=== PATIENT | male | born 1990 | race Caucasian/White ===

== ENCOUNTER 2016-11-09 18:49 | Emergency (ER) | payer BC ==
[2016-11-09 18:59] VITALS: BP 134/70
--- NOTE | 2016-11-09 19:29 | UC ---
Cardiac HPI - HPI Summary HPI Summary: has had chest pain over the left breast since noon. has been having palpitations for the last month or so and had his thyroid checked. he has not heard back from the Doctor about his thyroid tests. He also feels some shortness of breath. He has had a cold for the last month. The pain is on and off. It feels tight when he takes a deep breath. Chest discomfort with inhalation. Denies wheezing. Denies fevers. Palpitations started a few weeks ago . Had a murmur as a child. Denies drug use or cocaine use. Denies n/v but has had diarrhea for months. Not aware of cardiac concerns with family. [ End ] - History of Current Complaint Chief Complaint: UCChestPain Stated Complaint: CHEST PAIN,DIFFICULTY BREATHING Time Seen by Provider: 11/09/16 19:20 Hx Obtained From: Patient Onset/Duration: Sudden Onset, Gradual Onset Initial Severity: Mild Current Severity: Moderate Chest Pain Location: Left Lateral Character: Fast, Irregular, Pounding Aggravating: Exertion, Deep Breaths Alleviating: Rest Associated Signs & Symptoms: Positive: Chest Pain Related History: Similar Episode/Dx as - earlier this month -- work up with [facility] in [facility] - Risk Factors Cardiac Risk Factors: Negative Atrial Fibrillation: Negative - Allergy/Home Medications Allergies/Adverse Reactions: Allergies Allergy/AdvReac Type Severity Reaction Status Date / Time Cefaclor [From [facility]] Allergy Difficulty Verified 11/09/16 18:59 Breathing PMH/Surg Hx/FS Hx/Imm Hx Previously Healthy: Yes Cardiovascular History Of: Reports: Cardiac Disorders - HX OF HEART MURMUR Respiratory History Of: Denies: COPD GI/ History Of: Denies: Gastroesophageal Reflux Psychological History Of: Denies: Anxiety Cancer History Of: Denies: Lung Cancer Other History Of: Negative For: HIV - Surgical History Surgical History: None - Family History Known Family History: Positive: None - Social History Occupation: Employed Full-time - Attending Radiologist Alcohol Use: Occasionally Substance Use Type: None Smoking Status (MU): Never Smoked Tobacco Have You Smoked in the Last Year: No - Immunization History Most Recent Tetanus Shot: WITHIN LAST 5 YRS Review of Systems Constitutional: Negative Skin: Negative Eyes: Negative ENT: Negative Respiratory: Negative Cardiovascular: Palpitations, Chest Pain Gastrointestinal: Negative Genitourinary: Negative Motor: Negative Neurovascular: Negative Musculoskeletal: Negative Neurological: Negative Psychological: Negative All Other Systems Reviewed And Are Negative: Yes Physical Exam Triage Information Reviewed: Yes Appearance: Well-Appearing, No Pain Distress, Well-Nourished Vital Signs: Initial Vital Signs Pulse 112 11/09/16 18:54 Resp 20 11/09/16 18:54 BP 134/70 11/09/16 18:54 Pulse Ox 100 11/09/16 18:54 Vital Signs Reviewed: Yes Eye Exam: Normal ENT Exam: Normal Dental Exam: Normal Neck exam: Normal Neck: Positive: 1 Respiratory Exam: Normal Cardiovascular Exam: Normal Abdominal Exam: Normal Musculoskeletal Exam: Normal Neurological Exam: Normal Psychological Exam: Normal Psychological: Positive: Other: - mildly anxious Skin Exam: Normal - Assessment/Plan Course Of Treatment: Intermittent palpitations and chest pain that will last a couple seconds and go away. Has had some increase in caffeine which may play a role. Advised to f/u with PCP to discuss cardiac work up like echo / holter. Discussed meds but he declined. He is aware if Sx worsen to go to ED. No acute concerns and vitals stable. No cardiac disease in his family he is aware of. No PE findings. No murmur. RRR . He is agreeable to plan at this time. - Clinical Impression Provider Diagnoses: Palpitations Discharge - Discharge Plan Condition: Good Disposition: HOME Patient Education Materials: Palpitations (ED) Referrals: SHANNAN Restrepo [Primary Care Provider] - 3 Days Lesly Galeas MD [Medical Doctor] - 3 Days (Cardiology referral ) Additional Instructions: As we discussed please follow up with your PCP for a cardiac work up for your palpitations / chest pains. Today your EKG an chest xray show no acute concerns. If your symptoms return / worsen please go to the Emergency Room.
--- NOTE | 2016-11-09 19:58 | RAD ---
INDICATION: Chest pain and palpitations. COMPARISON: There are no prior studies available for comparison. TECHNIQUE: Dual-energy PA and lateral views of the chest were obtained. FINDINGS: The heart is within normal limits in size. Mediastinal and hilar contours appear within normal limits. The lungs are hyperinflated and clear. No pleural effusion is seen. IMPRESSION: NO EVIDENCE FOR ACTIVE CARDIOPULMONARY DISEASE.
== END 2016-11-09 20:16 | disposition home or self-care (01) ==
LOC: UCCORT 18:49
DX: R00.2 Palpitations (principal); R07.9 Chest pain, unspecified; Z88.1 Allergy status to other antibiotic agents
CPT/HCPCS: 71020; 93005; 99211; G0463

== ENCOUNTER 2017-03-18 12:31 | Emergency (ER) | payer BC ==
[2017-03-18 12:43] VITALS: BP 130/84
--- NOTE | 2017-03-18 13:06 | UC ---
General HPI - HPI Summary HPI Summary: Patient is complaining of pain above the right eye. denies any changins in vision or pain in the eye ball itself. denies fever , does have itchy watery eyes and some nasal congetsion. - History of Current Complaint Chief Complaint: UCHeadache Stated Complaint: SINUS ENRIQUEZ/PRESSURE Time Seen by Provider: 03/18/17 12:50 Hx Obtained From: Patient Onset/Duration: Sudden Onset, Lasting Days Onset Severity: Moderate Current Severity: Moderate Associated Signs & Symptoms: Positive: Headache - Allergy/Home Medications Allergies/Adverse Reactions: Allergies Allergy/AdvReac Type Severity Reaction Status Date / Time Cefaclor [From [facility]] Allergy Difficulty Verified 03/18/17 12:43 Breathing Home Medications: Home Medications Methimazole TAB* [Tapazole TAB*] 10 mg PO TID 03/18/17 [History Confirmed ] Propranolol TAB* [Inderal TAB*] 80 mg PO BID 03/18/17 [History Confirmed ] PMH/Surg Hx/FS Hx/Imm Hx Previously Healthy: Yes Other History Of: Negative For: HIV - Surgical History Surgical History: None - Family History Known Family History: Positive: None, Respiratory Disease - Social History Alcohol Use: Occasionally Substance Use Type: None Smoking Status (MU): Never Smoked Tobacco Have You Smoked in the Last Year: No - Immunization History Most Recent Tetanus Shot: WITHIN LAST 5 YRS Review of Systems Constitutional: Negative Skin: Negative Eyes: Eye Redness ENT: Nasal Discharge Respiratory: Negative Cardiovascular: Negative Gastrointestinal: Negative Genitourinary: Negative Motor: Negative Neurovascular: Negative Musculoskeletal: Negative Neurological: Negative Psychological: Negative All Other Systems Reviewed And Are Negative: Yes Physical Exam Triage Information Reviewed: Yes Appearance: Well-Appearing, Well-Nourished, Pain Distress Vital Signs: Initial Vital Signs Temp 98.2 F 03/18/17 12:40 Pulse 68 03/18/17 12:40 Resp 16 03/18/17 12:40 BP 130/84 03/18/17 12:40 Pulse Ox 100 03/18/17 12:40 Vital Signs Reviewed: Yes Eye Exam: Normal Eyes: Positive: Conjunctiva Clear, Other: - sclera is red bilaterally, no drainage, Fundoscopic exam red reflex is normal ENT Exam: Normal ENT: Positive: Hearing grossly normal, Pharynx normal, Nasal congestion, TMs normal Dental Exam: Normal Neck exam: Normal Neck: Positive: Supple, Nontender, No Lymphadenopathy Respiratory Exam: Normal Respiratory: Positive: Chest non-tender, Lungs clear, Normal breath sounds Cardiovascular Exam: Normal Cardiovascular: Positive: RRR, No Murmur, Pulses Normal Abdominal Exam: Normal Abdomen Description: Positive: Nontender, No Organomegaly, Soft Bowel Sounds: Positive: Present Musculoskeletal Exam: Normal Musculoskeletal: Positive: Strength Intact, ROM Intact, No Edema Neurological Exam: Normal Neurological: Positive: Alert, Muscle Tone Normal Psychological Exam: Normal Skin Exam: Normal Course/Dx - Course Course Of Treatment: hx obtained, exam performed, meds reviewed, treated for sinus infection. - Differential Dx - Multi-Symptom Differential Diagnoses: Other - gluacoma sinus intfection ENRIQUEZ Provider Diagnoses: sinusitis Discharge - Discharge Plan Condition: Stable Disposition: HOME Prescriptions: DOXYcycline CAP(*) [DOXYcycline 100MG CAP(*)] 100 mg PO BID #14 cap Patient Education Materials: Sinusitis (ED) Referrals: Machelle PERAZA,Katlyn Schulte [Primary Care Provider] - Additional Instructions: 1. take the medication as prescribed. 2. Warm compresses to the right eye. 3. If pain is persistant in the right eye, increase in pressure or change in vision follow up.
== END 2017-03-18 13:08 | disposition home or self-care (01) ==
LOC: UCCORT 12:31
DX: J32.9 Chronic sinusitis, unspecified (principal); Z88.1 Allergy status to other antibiotic agents
CPT/HCPCS: 99212; G0463

== ENCOUNTER 2017-08-07 07:47 | Emergency (ER) | payer BC ==
[2017-08-07 08:05] VITALS: BP 119/76
--- NOTE | 2017-08-07 08:29 | UC ---
Abdominal Pain Male HPI - HPI Summary HPI Summary: ABDOMINAL PAIN X 1 MONTH WORSE LAST NIGHT , FELT BLOATED , NO FEVER, NO CHILLS, NO N/V, + LOOSE STOOL NO DYSURIA - History of Current Complaint Chief Complaint: UCGI Stated Complaint: STOMACH COMPLAINT RIGHT LOWER BACK PAIN Time Seen by Provider: 08/07/17 08:00 Hx Obtained From: Patient Onset/Duration: Gradual Onset, Lasting Weeks - 4, Still Present Timing: Constant Severity Initially: Moderate Severity Currently: Moderate Location: Diffuse Radiates: No Character: Aching, Cramping Aggravating Factor(s): Food Alleviating Factor(s): Nothing Associated Signs And Symptoms: Positive: Diarrhea. Negative: Diaphoresis, Fever , Cough, Chest Pain, Dizzy, Back Pain, Constipation, Blood in Stool, Urinary Symptoms, Decreased Appetite, Nausea, Vomiting, Penile Discharge - Allergies/Home Medications Allergies/Adverse Reactions: Allergies Allergy/AdvReac Type Severity Reaction Status Date / Time Cefaclor [From [facility]] Allergy Difficulty Verified 08/07/17 08:05 Breathing Home Medications: Home Medications Calcium Carbonate (Antacid) [Tums] 2 tab.chew PO DAILY PRN 08/07/17 [History Confirmed 08/07/17] PMH/Surg Hx/FS Hx/Imm Hx Endocrine History: Thyroid Disease, Hyperthyroidism Other History Of: Negative For: HIV - Surgical History Surgical History: None - Family History Known Family History: Positive: None Negative: Diabetes - Social History Alcohol Use: Occasionally Substance Use Type: None Smoking Status (MU): Never Smoked Tobacco Have You Smoked in the Last Year: No - Immunization History Most Recent Tetanus Shot: WITHIN LAST 5 YRS Review of Systems Constitutional: Negative Skin: Negative Eyes: Negative ENT: Negative Respiratory: Negative Cardiovascular: Negative Gastrointestinal: Abdominal Pain, Diarrhea Is Patient Immunocompromised?: No All Other Systems Reviewed And Are Negative: Yes Physical Exam Triage Information Reviewed: Yes Appearance: Well-Appearing, No Pain Distress, Well-Nourished Vital Signs: Initial Vital Signs Temp 97.4 F 08/07/17 07:53 Pulse 59 08/07/17 07:53 Resp 14 08/07/17 07:53 BP 119/76 08/07/17 07:53 Pulse Ox 100 08/07/17 07:53 Vital Signs Reviewed: Yes Eye Exam: Normal Eyes: Positive: Conjunctiva Clear ENT: Positive: Normal ENT inspection, Hearing grossly normal, Pharynx normal Neck exam: Normal Neck: Positive: Supple, Nontender, No Lymphadenopathy Respiratory: Positive: Chest non-tender, Lungs clear, Normal breath sounds Cardiovascular: Positive: RRR, No Murmur, Pulses Normal Abdomen Description: Positive: Soft, Other: - DIFFUSE TENDERENSS. Negative: CVA Tenderness (R), CVA Tenderness (L), Distended, Guarding Bowel Sounds: Positive: Present Skin Exam: Normal Abd Pain Male Course/Dx - Differential Dx/Clinical Impression Provider Diagnoses: GASTRITIS Discharge - Discharge Plan Condition: Stable Disposition: HOME Prescriptions: Pantoprazole TAB (NF) [Protonix TAB (NF)] 40 mg PO DAILY #30 tab Patient Education Materials: Gastritis (ED) Referrals: Machelle PERAZA,Katlyn Schulte [Primary Care Provider] - 2 Weeks Additional Instructions: your symptoms / abdominal issues might be due to over active thyroid please follow up with your traffic incident management manager for eval. and tx
== END 2017-08-07 08:31 | disposition home or self-care (01) ==
LOC: UCCORT 07:47
DX: K29.70 Gastritis, unspecified, without bleeding (principal); E05.90 Thyrotoxicosis, unspecified without thyrotoxic crisis or storm; Z88.1 Allergy status to other antibiotic agents
CPT/HCPCS: 99212; G0463

== ENCOUNTER 2017-08-23 17:47 | Emergency (ER) | payer BC ==
--- NOTE | 2017-08-23 18:43 | UC ---
Back Pain HPI - HPI Summary HPI Summary: 27 year old male presents with complains of sore throat and neck swelling. - History of Current Complaint Stated Complaint: CHEST CONGESTION Time Seen by Provider: 08/23/17 18:42 Hx Obtained From: Patient Onset/Duration: Sudden Onset Timing: Lasting Seconds Severity Currently: Moderate Pain Scale Used: 0-10 Numeric - 5 - Allergies/Home Medications Allergies/Adverse Reactions: Allergies Allergy/AdvReac Type Severity Reaction Status Date / Time Cefaclor [From [facility]] Allergy Difficulty Verified 08/23/17 18:46 Breathing Home Medications: Home Medications Aspirin [Aspirin 81 MG TAB] 1 tab PO ONCE PRN 08/23/17 [History Confirmed ] PMH/Surg Hx/FS Hx/Imm Hx Previously Healthy: Yes Other History Of: Negative For: HIV - Surgical History Surgical History: None - Family History Known Family History: Positive: None Negative: Diabetes - Social History Alcohol Use: Occasionally Substance Use Type: None Smoking Status (MU): Never Smoked Tobacco Have You Smoked in the Last Year: No - Immunization History Most Recent Tetanus Shot: WITHIN LAST 5 YRS Review of Systems Constitutional: Negative Skin: Negative Eyes: Negative ENT: Nasal Discharge, Sinus Congestion, Sinus Pain/Tenderness Respiratory: Negative Cardiovascular: Negative Gastrointestinal: Negative Genitourinary: Negative Motor: Negative Neurovascular: Negative Musculoskeletal: Negative Neurological: Negative Psychological: Negative All Other Systems Reviewed And Are Negative: Yes Physical Exam Triage Information Reviewed: Yes Vital Signs Reviewed: Yes Eye Exam: Normal ENT Exam: Normal Dental Exam: Normal Neck exam: Normal Neck: Positive: Other: - right sided neck swelling Respiratory Exam: Normal Cardiovascular Exam: Normal Abdominal Exam: Normal Musculoskeletal Exam: Normal Neurological Exam: Normal Psychological Exam: Normal Skin Exam: Normal Back Pain Course/Dx - Differential Dx/Diagnosis Provider Diagnoses: strep throat Discharge - Discharge Plan Condition: Stable Disposition: HOME Prescriptions: Azithromyxin CLOVIS (NF) [Z-Clovis (Zithromax) 250 mg tabs #6] 2 tab PO .TODAY, THEN 1 DAILY #6 tab Magic M W2 Jason/Maal/Nyst/Lido* 5 ml SWISH SPIT QID PRN #120 ml PRN Reason: Pain Patient Education Materials: Strep Throat (ED) Referrals: Machelle PERAZA,Katlyn Schulte [Primary Care Provider] -
[2017-08-23 18:46] VITALS: BP 122/76
== END 2017-08-23 19:24 | disposition home or self-care (01) ==
LOC: UCCORT 17:47
DX: J02.0 Streptococcal pharyngitis (principal); Z88.1 Allergy status to other antibiotic agents; Z79.82 Long term (current) use of aspirin
CPT/HCPCS: 87651; 99212; G0463

== ENCOUNTER 2017-10-10 12:48 | Emergency (ER) | payer BC ==
[2017-10-10 14:09] VITALS: BP 111/62
--- NOTE | 2017-10-10 14:27 | UC ---
Abdominal Pain Male HPI - HPI Summary HPI Summary: 27 year old with Grave's and history of GERD presents with Mid chest burning and chest tightness for 4 days; hx of Graves. has taken some NSSAIDs lateley and the discomfort has been worse after a meal and also sometimes at night when he is at rest. Has had more stress this past year with the recent illnesses. No MAKI. No SOB. [ End ] - History of Current Complaint Chief Complaint: UCChestPain Stated Complaint: CHEST TIGHTNESS/FATIGUE Time Seen by Provider: 10/10/17 13:37 Hx Obtained From: Patient Onset/Duration: Gradual Onset Severity Initially: Moderate Severity Currently: Moderate Radiates: No Character: Burning, Dull Aggravating Factor(s): Food - Allergies/Home Medications Allergies/Adverse Reactions: Allergies Allergy/AdvReac Type Severity Reaction Status Date / Time Cefaclor [From [facility]] Allergy Difficulty Verified 10/10/17 13:31 Breathing PMH/Surg Hx/FS Hx/Imm Hx Previously Healthy: Yes Other Endocrine History: Graves Other History Of: Negative For: HIV - Surgical History Surgical History: Yes Surgery Procedure, Year, and Place: MRSA left arm - Family History Known Family History: Positive: None Negative: Diabetes - Social History Occupation: Employed Full-time Lives: With Family Alcohol Use: Occasionally Substance Use Type: None Smoking Status (MU): Never Smoked Tobacco Have You Smoked in the Last Year: No - Immunization History Most Recent Tetanus Shot: WITHIN LAST 5 YRS Review of Systems Constitutional: Fatigue Cardiovascular: Chest Pain Gastrointestinal: Abdominal Pain Is Patient Immunocompromised?: No All Other Systems Reviewed And Are Negative: Yes Physical Exam Triage Information Reviewed: Yes Appearance: Well-Appearing, No Pain Distress, Well-Nourished Vital Signs: Initial Vital Signs Temp 99.5 F 10/10/17 13:11 Pulse 52 10/10/17 13:11 Resp 16 10/10/17 13:11 BP 111/62 10/10/17 13:11 Pulse Ox 100 10/10/17 13:11 Vital Signs Reviewed: Yes Eye Exam: Normal ENT Exam: Normal Dental Exam: Normal Neck exam: Normal Neck: Positive: 1 Respiratory Exam: Normal Cardiovascular Exam: Normal Abdominal Exam: Normal Abdomen Description: Positive: Nontender, No Organomegaly, Soft. Negative: CVA Tenderness (R), CVA Tenderness (L) Musculoskeletal Exam: Normal Neurological Exam: Normal Psychological Exam: Normal Skin Exam: Normal Abd Pain Male Course/Dx - Course Course Of Treatment: Likely GERD / Anxiety due to recent illness. -- start H2 rand and if not better go to PCP for further eval . Advised avoid triggers as well. Go to ED if Sx persist . Ekg SHOWS no acute concerns. no risks for patient to be concerned of for cardiac for this. - Differential Dx/Clinical Impression Provider Diagnoses: Gerd Discharge - Discharge Plan Condition: Good Disposition: HOME Patient Education Materials: Gastroesophageal Reflux Disease (ED) Referrals: Machelle PERAZA,Katlyn Schulte [Primary Care Provider] - 4 Days Additional Instructions: Please consider use of Zantac 150 mg by mouth twice daily and if your symptoms worsen then go to the Emergency department
== END 2017-10-10 14:31 | disposition home or self-care (01) ==
LOC: UCCORT 12:48
DX: K21.9 Gastro-esophageal reflux disease without esophagitis (principal); Z88.1 Allergy status to other antibiotic agents
CPT/HCPCS: 93005; 99211; G0463

== ENCOUNTER 2018-12-11 16:59 | Emergency (ER) | payer BC ==
[2018-12-11 17:18] VITALS: BP 126/80
--- NOTE | 2018-12-11 18:40 | UC ---
Complaint Male HPI - HPI Summary HPI Summary: patient has had a day and a half of increase frequency of urination. some hesitancy with starting a stream. he denies any stomach pain, no pain with lifting. there is no swelling or pain in his testicles. patient is in a monogamous relationship. denies any chance of STD. no drainage from penis. - History of Current Complaint Chief Complaint: UCGU Stated Complaint: URINARY COMPLAINT Time Seen by Provider: 12/11/18 17:31 Hx Obtained From: Patient Onset/Duration: Sudden Onset, Lasting Days - 1 Timing: Intermittent Severity Initially: Mild Severity Currently: Mild Pain Intensity: 0 Aggravating Factor(s): Voiding - Allergies/Home Medications Allergies/Adverse Reactions: Allergies Allergy/AdvReac Type Severity Reaction Status Date / Time cefaclor [From [facility]] Allergy Difficulty Verified 12/11/18 17:18 Breathing Home Medications: Home Medications Levothyroxine TAB* [Synthroid TAB*] 50 mcg PO DAILY 12/11/18 [History Confirmed 12/11/18] PMH/Surg Hx/FS Hx/Imm Hx Previously Healthy: Yes Endocrine History: Thyroid Disease Other History Of: Negative For: HIV - Surgical History Surgical History: Yes Surgery Procedure, Year, and Place: MRSA left arm - Family History Known Family History: Positive: None Negative: Diabetes - Social History Alcohol Use: Occasionally Substance Use Type: None Smoking Status (MU): Never Smoked Tobacco Have You Smoked in the Last Year: No - Immunization History Most Recent Tetanus Shot: WITHIN LAST 5 YRS Review of Systems All Other Systems Reviewed And Are Negative: Yes Constitutional: Positive: Negative Skin: Positive: Negative Eyes: Positive: Negative ENT: Positive: Negative Respiratory: Positive: Negative Cardiovascular: Positive: Negative Gastrointestinal: Positive: Negative Genitourinary: Positive: Frequency, Other - hestiant stream Motor: Positive: Negative Neurovascular: Positive: Negative Musculoskeletal: Positive: Negative Neurological: Positive: Negative Psychological: Positive: Negative Is Patient Immunocompromised?: No Physical Exam Triage Information Reviewed: Yes Appearance: Well-Appearing, No Pain Distress, Well-Nourished Vital Signs: Initial Vital Signs Temp 98.3 F 12/11/18 17:14 Pulse 75 12/11/18 17:14 Resp 16 12/11/18 17:14 BP 126/80 12/11/18 17:14 Pulse Ox 100 12/11/18 17:14 Vital Signs Reviewed: Yes Eye Exam: Normal ENT Exam: Normal Dental Exam: Normal Neck exam: Normal Respiratory Exam: Normal Respiratory: Positive: Chest non-tender, Lungs clear, Normal breath sounds Cardiovascular Exam: Normal Cardiovascular: Positive: RRR, No Murmur, Pulses Normal Abdominal Exam: Normal Abdomen Description: Positive: Nontender, No Organomegaly, Soft, CVA Tenderness (R) - neg, CVA Tenderness (L) - neg Bowel Sounds: Positive: Present Male Genital Exam: Positive: No Hernia Musculoskeletal Exam: Normal Musculoskeletal: Positive: Strength Intact, ROM Intact, No Edema Neurological Exam: Normal Neurological: Positive: Alert Psychological Exam: Normal Skin Exam: Normal Complaint Male Course/Dx - Course Course Of Treatment: hx obtained, exam performed ,meds reviewed, UA was negative , culture sent. - Differential Dx/Diagnosis Provider Diagnosis: Spastic dysuria Discharge - Sign-Out/Discharge Documenting (check all that apply): Patient Departure All imaging exams completed and their final reports reviewed: No Studies - Discharge Plan Condition: Stable Disposition: HOME Patient Education Materials: Dysuria (ED) Referrals: Katlyn Sin [Primary Care Provider] - Donavon Carter MD [Medical Doctor] - Additional Instructions: 1. increase fluid intake, cranberry pills are helpful try Natures bounty triple strength 25,500 units... hugo usually has this. 1 tab every hour for 12 hours 2. your urine was cultured and should be available in the next 48 hours. 3. if bacteria grows we will treat at this time - Billing Disposition and Condition Condition: STABLE Disposition: Home
== END 2018-12-11 18:40 | disposition home or self-care (01) ==
LOC: UCCORT 16:59
DX: R30.0 Dysuria (principal); R35.0 Frequency of micturition; R39.11 Hesitancy of micturition; E07.9 Disorder of thyroid, unspecified; Z88.1 Allergy status to other antibiotic agents; Z79.899 Other long term (current) drug therapy
CPT/HCPCS: 81003; 87086; 99211; G0463

== ENCOUNTER 2019-12-04 12:43 | Emergency (ER) | payer BC ==
[2019-12-04 14:39] VITALS: BP 139/81
--- NOTE | 2019-12-04 14:46 | UC ---
Respiratory Complaint HPI - HPI Summary HPI Summary: 29 yo male with < 24 hour hx of nasal congestion/chills/cough and mild headache no fever no n/v/d has 6 week old at home and desires to be tested for flu - History of Current Complaint Chief Complaint: UCGeneralIllness Stated Complaint: CHILLS CONGESTION SORE THROAT Time Seen by Provider: 12/04/19 14:32 Hx Obtained From: Patient Onset/Duration: Gradual Onset, Lasting Hours Timing: Constant Severity Initially: Mild Severity Currently: Mild Pain Intensity: 0 Pain Scale Used: 0-10 Numeric Character: Cough: Nonproductive Aggravating Factors: Nothing Alleviating Factors: Nothing Associated Signs And Symptoms: Positive: Chills, Nasal Congestion - Allergies/Home Medications Allergies/Adverse Reactions: Allergies Allergy/AdvReac Type Severity Reaction Status Date / Time cefaclor [From [facility]] Allergy Difficulty Verified 12/04/19 14:35 Breathing Home Medications: Home Medications Dm/Acetaminophen/Doxylamine [Nighttime Cold-Flu Rlf Sftgl] 1 dose PO ONCE [History Confirmed 12/04/19] guaiFENesin [Mucinex] 1 dose PO ONCE 12/04/19 [History Confirmed 12/04/19] PMH/Surg Hx/FS Hx/Imm Hx Previously Healthy: Yes Endocrine History: Thyroid Disease Other History Of: Negative For: HIV - Surgical History Surgical History: Yes Surgery Procedure, Year, and Place: MRSA left arm 2009 - Family History Known Family History: Negative: Cardiac Disease, Hypertension, Diabetes - Social History Alcohol Use: Occasionally Substance Use Type: None Smoking Status (MU): Never Smoked Tobacco Have You Smoked in the Last Year: No - Immunization History Most Recent Tetanus Shot: WITHIN LAST 5 YRS Review of Systems All Other Systems Reviewed And Are Negative: Yes Constitutional: Positive: Chills Skin: Positive: Negative Eyes: Positive: Negative ENT: Positive: Nasal Discharge, Sinus Congestion Respiratory: Positive: Cough Cardiovascular: Positive: Negative Gastrointestinal: Positive: Negative Genitourinary: Positive: Negative Motor: Positive: Negative Neurovascular: Positive: Negative Musculoskeletal: Positive: Negative Neurological/Mental Status: Positive: Headache - mild Psychological: Positive: Negative Physical Exam Triage Information Reviewed: Yes Appearance: Well-Appearing, No Pain Distress, Well-Nourished Vital Signs: Initial Vital Signs Temp 97.3 F 12/04/19 14:37 Pulse 86 12/04/19 14:37 Resp 15 12/04/19 14:37 BP 139/81 12/04/19 14:37 Pulse Ox 100 12/04/19 14:37 Vital Signs Reviewed: Yes Eyes: Positive: Conjunctiva Clear ENT: Positive: Hearing grossly normal, Pharynx normal, TMs normal, Uvula midline. Negative: Pharyngeal erythema, Nasal congestion, Nasal drainage, TM bulging, Tonsillar swelling, Tonsillar exudate, Muffled voice, Hoarse voice, Dental tenderness, Sinus tenderness Dental Exam: Normal Neck: Positive: Supple, Nontender, No Lymphadenopathy Respiratory: Positive: Lungs clear, Normal breath sounds, No respiratory distress, No accessory muscle use Cardiovascular: Positive: RRR, No Murmur Musculoskeletal: Positive: ROM Intact, No Edema Neurological: Positive: Alert Psychological Exam: Normal Skin Exam: Normal Respiratory Course/Dx - Course Course Of Treatment: influenza (-) - Differential Dx/Diagnosis Provider Diagnosis: Elevated BP without diagnosis of hypertension, Viral URI Discharge ED - Sign-Out/Discharge Documenting (check all that apply): Patient Departure All imaging exams completed and their final reports reviewed: No Studies - Discharge Plan Condition: Stable Disposition: HOME Patient Education Materials: Upper Respiratory Infection (ED) Referrals: Katlyn Carty PA [Primary Care Provider] - If Needed Additional Instructions: your flu test was negative your BP was slightly elevated and should be rechecked in 2-20 weeks (139/81) - Billing Disposition and Condition Condition: STABLE Disposition: Home
[2019-12-04 14:48] LABS: Influenza A Molecular Negative (Negative); Influenza B Molecular Negative (Negative)
== END 2019-12-04 15:07 | disposition home or self-care (01) ==
LOC: UCCORT 12:43
DX: J06.9 Acute upper respiratory infection, unspecified (principal); R03.0 Elevated blood-pressure reading, without diagnosis of hypertension; R51 Headache; Z88.1 Allergy status to other antibiotic agents
CPT/HCPCS: 99211; G0463